=== PATIENT | female | born 1955 | race Caucasian/White ===

== ENCOUNTER 2016-05-20 05:23 | Day surgery (SDC) | payer OTHER ==
[2016-05-20] MEDS ORDERED: Sodium Chloride 0.9% 10 ML Syringe FLUSH PRN (06:00)
[2016-05-20] MEDS ORDERED: Dextrose 5%-0.45% NaCl 1,000 ML IV SCH (06:00)
[2016-05-20] MEDS ORDERED: fentaNYL 100 MCG/2 ML SDV ONE (06:13)
[2016-05-20] MEDS ORDERED: Midazolam 1 MG/ML 2 ML SDV ONE (06:13)
[2016-05-20] MEDS ORDERED: fentaNYL 100 MCG/2 ML SDV IV ONE ×3 (06:34→11:10)
[2016-05-20] MEDS ORDERED: Midazolam 1 MG/ML 2 ML SDV IV ONE ×3 (06:35→11:10)
--- NOTE | 2016-05-20 07:36 | OR ---
DATE: 05/20/2016 PROCEDURES: Esophagogastroduodenoscopy, NBI, and multiple pinch biopsies. INSTRUMENT USED: GIF-H180 Olympus video panendoscope. PREMEDICATIONS: No oral topical anesthesia used. Fentanyl 100 mcg intravenous, Versed 1.5 mg intravenous. The procedure was done under pulse oximetry, BP recording, and rn cardiac rehab. INDICATION: The patient with known Mckee's esophagus. Surveillance esophagogastroduodenoscopy is done for detection of any active erosive lesions, biopsies to be obtained for dysplasia, malignancy also under consideration, endoscopic hemostasis therapy if needed. DESCRIPTION OF PROCEDURE: The scope was passed with ease. Adequate visualization of the esophagus was made from proximal to distal areas. No upper esophageal lesions identified. No distal esophageal stricture. No uphill or downhill esophageal varices. No [place]-In[place] tear. No evidence of erosive esophagitis by Watson criteria. No esophageal polyp or tumor mass identified. [place] columnar epithelium was noted at around 34 cm distal to the oral verge, NBI views were obtained, photographs were taken. Four-quadrant biopsies were taken at 2 cm distance apart and sent for any histopathologic evidence of dysplasia. No proximal gastric varices noted. Fundus examination with retroflexion showed no malignant lesions. Diminutive benign-appearing gastric fundus polyps were noted. No gastric ulcer, malignant mass, or vascular ectasia identified. Duodenal bulb showed no ulcer. Visualized second part of the duodenum was unremarkable. Photographs were taken of the duodenal bulb, gastric antrum, fundus, and distal esophagus. No bleeding was noted from any of the visualized areas at the completion of examination. IMPRESSION: Mckee's esophagus. The patient tolerated the procedure well. [facility] /[id number]
[2016-05-20 08:48] VITALS: BP 115/66
== END 2016-05-20 08:54 | disposition home or self-care (01) ==
LOC: DL.ENDO 05:23
PROVIDERS: ATTEND Internal Medicine Gastroenterology
DX: K22.70 Barrett's esophagus without dysplasia (principal); Z88.2 Allergy status to sulfonamides; Z79.82 Long term (current) use of aspirin; Z79.899 Other long term (current) drug therapy; Z98.890 Other specified postprocedural states
CPT/HCPCS: 43239; J2250; J3010; J7042

== ENCOUNTER 2016-06-06 06:27 | Day surgery (SDC) | payer OTHER ==
[~2016-06-06 06:27] MED LIST: Midazolam 1 MG/ML 2 ML SDV ONE; fentaNYL 100 MCG/2 ML SDV ONE
[2016-06-06] MEDS ORDERED: Sodium Chloride 0.9% 10 ML Syringe FLUSH PRN (06:37)
[2016-06-06] MEDS ORDERED: Dextrose 5%-0.45% NaCl 1,000 ML IV SCH (06:45)
[2016-06-06] MEDS ORDERED: fentaNYL 100 MCG/2 ML SDV IV ONE ×5 (07:17→14:30)
[2016-06-06] MEDS ORDERED: Midazolam 1 MG/ML 2 ML SDV IV ONE ×7 (07:18→14:30)
[2016-06-06 09:47] VITALS: BP 114/79
--- NOTE | 2016-06-06 10:07 | OR ---
DATE: 06/06/2016 PROCEDURE: Total colonoscopy. INSTRUMENT USED: PCF-H180AL Olympus video colonoscope. PREMEDICATIONS: Fentanyl 150 mcg intravenous, Versed 4 mg intravenous. Nasal O2 cannula. The procedure was done under pulse oximetry, BP recording, and bag sealer. INDICATION: The patient with rectal bleeding. Colonoscopic examination is done for detection of any polypoid lesions and removal, endoscopic hemostasis therapy if needed. DESCRIPTION OF PROCEDURE: Initial rectal exam was unremarkable. Rigid anoscopy was normal. The colonoscope was passed with ease up to the ileocecal area, photographs were taken of the normal-appearing cecum, identified by double- bulged ileocecal folds. No bleeding was noted from any of the visualized areas at the commencement of the examination. No stricture. No vascular ectasia. No large isolated ulcerations seen. No evidence of diffuse inflammatory bowel disease in the form of friability, contact bleeding, or ulcerations. No polyp or tumor mass identified. Probing the proximal sides of folds and flexures, using adequate distention and clearing of the stool material, withdrawal of the scope was made. Cecum to rectum time over 6 minutes. No bleeding was noted from any of the visualized areas at the completion of examination. IMPRESSION: Normal study. The patient tolerated the procedure well. [facility] /[id number]
== END 2016-06-06 09:41 | disposition home or self-care (01) ==
LOC: DL.ENDO 06:27
PROVIDERS: ATTEND Internal Medicine Gastroenterology
DX: K62.5 Hemorrhage of anus and rectum (principal); K21.9 Gastro-esophageal reflux disease without esophagitis; Z88.2 Allergy status to sulfonamides; Z79.82 Long term (current) use of aspirin; Z79.899 Other long term (current) drug therapy; Z98.890 Other specified postprocedural states
CPT/HCPCS: 45378; J2250; J3010; J7042

== ENCOUNTER 2022-12-05 05:53 | Day surgery (SDC) | payer MEDICARE, BC ==
[2022-12-05] MEDS: Dextrose 5%-0.45% NaCl 1,000 ML IV SCH (06:15)
[2022-12-05] MEDS ORDERED: Midazolam 1 MG/ML 2 ML SDV ONE (06:18)
[2022-12-05] MEDS ORDERED: fentaNYL 100 MCG/2 ML SDV ONE (06:18)
[2022-12-05] MEDS: fentaNYL 100 MCG/2 ML SDV IV ONE ×2 (07:02→07:03)
[2022-12-05] MEDS: Midazolam 1 MG/ML 2 ML SDV IV ONE ×2 (07:04→07:05)
[2022-12-05 10:18] VITALS: BP 96/55
[2022-12-05 10:19] VITALS: PULSE 54
== END 2022-12-05 09:15 | disposition home or self-care (01) ==
LOC: DL.ENDO 05:53
PROVIDERS: ATTEND Internal Medicine Gastroenterology
DX: K22.70 Barrett's esophagus without dysplasia (principal); K29.50 Unspecified chronic gastritis without bleeding; K21.00 Gastro-esophageal reflux disease with esophagitis, without bleeding; K31.7 Polyp of stomach and duodenum; R63.4 Abnormal weight loss; Z88.2 Allergy status to sulfonamides; Z80.0 Family history of malignant neoplasm of digestive organs
CPT/HCPCS: 43239; 87077; J2250; J3010; J7042